=== PATIENT | female | born 1955 | race Caucasian/White ===

== ENCOUNTER 2024-01-25 08:30 | Outpatient (RCR) | payer MEDICARE, SELFPAY ==
--- NOTE | 2023-12-24 16:38 | PTOPEVAL1 ---
Assessment and note entered by Allyssa Chu, PT Evaluation Information Assessment Status Evaluation Diagnosis m54.2 cervicalgia, M25.511 pain in R shoulder, G89 .11 ICD-10 Condition Codes (PT) Cervicalgia M54.2,M25.511,M25.521,Weakness R53.1 Onset Dec 08, 2023 Subjective Information Pt reports falling last Dec 07 outdoor while she was working in the yard and fell backwards and hit her head, recalls throwing her R arm up and back. However, during the day of the fall, she was focusing on the pain in her head due hematoma, did not notice anything else. The next day she felt severe ache and soreness to B shoulders R > L which got worse over time. MD gave her muscle relaxants and it seem to help some. 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 Other activities that are severely limited at this time include: Curling her hair, moving her arm out to hand something, putting away dishes or reaching overhead cupboards . She uses L hand to support R elbow when performing all ADLs and IADLs. Assessment PT Clinical Summary Pt is a 68 yo female who presents to therapy with c/o increased R UE pain secondary to a mechanical fall on 12/08/2023. Shoulder X-ray showed Degenerative changes of the area of the greater tuberosity, negative for dislocation or fracture. Cervical X-ray result indicated Multilevel degenerative disc disease with narrowing of discs and foramina bilat. Pt demos loss of R shoulder active ROM, significant muscle guarding and tightness resulting to weakness, decreased arm swing with gait and increased difficulty with performing ADLs and IADLs requiring occasional assistance from her . She will greatly benefit from skilled PT to manage pain, improve joint mobility and integrity, improve strength in order to perform pain-free and independent functional mobility. Plan of Care Interventions Electrical Stimulation,Hot Pack/Cold Pack,Manual Therapy,Neuro Re-education,Patient/Caregiver Education,Therapeutic Activities,Therapeutic Exercise,Ultrasound Other Interventions [facility] Indicated Yes Treatment Frequency and 2x/wk x 20 visits Duration These treatments will address the objective and functional deficits as defined above. The patient will be advanced safely and appropriately in order for the patient to progress towards his/her prior level of function. Additional exercises will be introduced and as well as a comprehensive home exercise program upon discharge, if needed, ?to ensure carryover of functional gains achieved in the clinic. This treatment plan has been reviewed and agreement upon by the patient.
--- NOTE | 2024-01-25 09:57 | PTOPDC ---
Assessment and note entered by Allyssa Chu, PT Discharge Information Assessment Status Discharge Diagnosis m54.2 cervicalgia, M25.511 pain in R shoulder, G89 .11 ICD-10 Condition Codes (PT) Cervicalgia M54.2,M25.511,M25.521,Weakness R53.1 Onset Dec 08, 2023 Subjective Information Pt reports being able to do active R shoulder movements without assistance from the L UE. Pain is significantly reduced. Reported Pain Level Pain Score 1: Self Report Assessment PT Clinical Summary Pt received a total of 6 PT sessions and showed good progress with therapy, showed gains in mobility, strength and significant reduction in pain. Functional tests demos WNL ROM for R shoulder, 5/5 strength and 3/10 pain at worst. She scored 11% for Quick DASH questionnaire indicating minimal disability. Continued skilled PT not necessary at this time. Plan of Care PT Services Indicated No
== END 2024-01-25 13:45 | disposition home or self-care (01) ==
LOC: ANHHIPT 08:30
PROVIDERS: PCP Physician Assistant Medical; Visit Provider Physician Assistant Medical
DX: M54.2 Cervicalgia (principal); M25.511 Pain in right shoulder; G89.11 Acute pain due to trauma
CPT/HCPCS: 97014; 97035; 97110; 97140; 97161; 97750; G0283

== ENCOUNTER 2024-06-29 09:28 | Outpatient (CLI) | payer MEDICARE, SELFPAY ==
--- NOTE | ~2024-06-29 | MR_ITS ---
MRI of the right shoulder Technique: Axial proton-density fat-sat images, coronal proton density fat-sat and T2 fat-sat images, and sagittal T1-weighted and T2 fat-sat images were acquired. Clinical History: Pain Findings: There is severe AC joint degenerative change, with bony productive change and fluid present in the joint space. Subacromial spur present. Coracoclavicular, coracoacromial, and coracohumeral li gaments are probably intact. There is advanced supraspinatus and infraspinatus tendinosis. Questionable high-grade tearing at the distal anterior supraspinatus tendon insertion versus severe tendinosis and thinning. No infraspinatu s tear evident. Subscapularis tendon is intact. Tendon of long head of the biceps is intact. There is mild degenerative attenuation of the superior labrum. Inferior glenohumeral ligament is intact. There is no degenerative change of the glenohumeral joint i s mild chondromalacia. There is small amount of fluid in the subacromial/subdeltoid bursa. No muscle atrophy or edema. Impression: Severe rotator cuff tendinosis of the supraspinatus and infraspinatus tendons. Questionable high grad e/full thickness tearing at the distal anterior supraspinatus tendon versus tendon thinning and sever e tendinosis. Consider MR arthrogram to better confirm or exclude full-thickness tear. Severe AC joint degenerative change. Mild subacromial/subdeltoid bursitis suspected. Reviewed, dictated and finalized at location . Impression: Severe rotator cuff tendinosis of the supraspinatus and infraspinatus tendons. Questionable high grade/full thickness tearing at the distal anterior supraspin atus tendon versus tendon thinning and severe tendinosis. Consider MR arthrogra m to better confirm or exclude full-thickness tear. Severe AC joint degenerative change. Mild subacromial/subdeltoid bursitis suspected.
== END 2024-06-29 09:29 | disposition home or self-care (01) ==
LOC: MICIMG 09:29
PROVIDERS: PCP Physician Assistant Medical; Visit Provider Physician Assistant Medical
DX: M19.011 Primary osteoarthritis, right shoulder (principal)
CPT/HCPCS: 73221

== ENCOUNTER 2025-01-24 11:13 | Outpatient (CLI) | payer MEDICARE, SELFPAY ==
--- NOTE | 2025-01-24 11:32 | ECG_ITS ---
Test Date: 2025-01-24 12:00:30 Measurements Intervals [place] Rate: 63 P: -4 MS: 177 QRS: -37 QRSD: 97 T: -1 QT: 411 QTc: 424 Interpretive Statements SINUS RHYTHM LEFT AXIS DEVIATION LOW QRS VOLTAGE IN PRECORDIAL LEADS INCOMPLETE RIGHT BUNDLE BRANCH BLOCK POSSIBLE ANTERIOR MYOCARDIAL INFARCTION CONSIDER INFERIOR INFARCT, AGE INDETERMINATE BASELINE ARTIFACT- I, II, III, AVR, AVL, AVF ABNORMAL ECG No previous ECG available for comparison Electronically Signed On 01-24-2025 12:17:19 CDT by Cody Palomo D.O.
== END 2025-01-24 11:14 | disposition home or self-care (01) ==
LOC: ANHSURGERY 11:17
PROVIDERS: PCP Physician Assistant Medical; Visit Provider Orthopaedic Surgery
DX: M75.111 Incomplete rotator cuff tear or rupture of right shoulder, not specified as traumatic (principal); I10 Essential (primary) hypertension; Z01.818 Encounter for other preprocedural examination
CPT/HCPCS: 87081; 93005

== ENCOUNTER 2025-02-20 12:09 | Outpatient (CLI) | payer MEDICARE, SELFPAY ==
[2025-02-20 12:57] LABS: Anion Gap 6 mmol/L (4-12); Blood Urea Nitrogen 14 mg/dL (7-17); Calcium 9.1 mg/dL (8.4-10.2); Carbon Dioxide 32 mmol/L (22-30); Chloride 96 mmol/L (98-107); Estimated Glomerular Filt Rate > 60; Glucose 115 mg/dL (65-110); Potassium 3.7 mmol/L (3.4-5.0); Sodium 134 mmol/L (137-145)
== END 2025-02-20 12:10 | disposition home or self-care (01) ==
LOC: ANHSURGERY 12:11
PROVIDERS: Anesthesiology; PCP Physician Assistant Medical; Visit Provider Orthopaedic Surgery
DX: I10 Essential (primary) hypertension (principal); Z01.818 Encounter for other preprocedural examination
CPT/HCPCS: 36415; 80048

== ENCOUNTER 2025-03-02 01:44 | Day surgery (SDC) | payer MEDICARE, SELFPAY ==
--- NOTE | 2025-01-19 14:32 | PC.NURSE ---
[facility] has started construction of its new state of the art ER which will open Spring 2026. With this, we anticipate parking may be a challenge for some our surgical patients and families. Parking spaces are limited but are available for all Surgical, obstetrics, and ER patients sharing this lot. If you arrive and find you are having a hard time finding a parking space, please note that we understand the challenges, please drive around the hospital and park near Hospital Entrance 1. When you enter this entrance, you can ask a volunteer to direct or take you back to the surgical waiting area to check in. We appreciate everyone?s understanding of these expected challenges while we build for your future. Report to the Outpatient Waiting Room, entrance under the green pavilion located off [address], at time __6 AM on date __02/02/25 . Planned Procedure Time: ___7:30 AM .? Time changes happen often and if your time is changed the preop area will call you the afternoon before. - You and your visitor will be asked to self-screen and do not enter if you have any COVID symptoms. Please call surgeon if you need to reschedule. - A mask is optional within the hospital at this time. Patients may have clear liquids (water, carbonated beverages, clear teas, apple juice) until 3 hours prior to surgery( 4:30 AM) with a maximum of 20 ounces. - No food from midnight until time of surgery and no smoking, or chewing tobacco (or any form of nicotine). No chewing gum, candy or mints. - Take only the following medications with a SIP of water on the morning of surgery: _CITALOPRAM,LEVOTHYROXINE DO NOT STOP ANY OF YOUR OTHER PRESCRIPTION MEDICATIONS PRIOR TO SURGERY EXCEPT THE FOLLOWING Hold all vitamins and supplements for 3 days per anesthesiologist. MAY CONTINUE ASPIRIN PER DR ROWELL BUT DO NOT TAKE MORNING OF SURGERY Medications to discontinue per physician ___NONE Please no make-up, nail lithuanian, hairspray, perfume, deodorant, or body powder the day of surgery.? No jewelry (including any body piercings) or valuables the day of surgery, leave them at home.? Please take a shower or bath the night before, or the morning of, surgery with an antibacterial soap.? Wear comfortable, loose fitting clothing.? Children are encouraged to wear pajamas. - Jewelry must be removed prior to entering the operating room.? Rings and piercings that are not removed may be cut off. - The hospital will not accept responsibility for valuables.? - Please leave all valuables, including medications, at home the day of surgery. If you are going home after surgery, a licensed sales route driver helper must drive you home.? - NO public transportation without another adult if you receive anesthesia. - We recommend that an adult stay with you for 24 hours following discharge. - We also recommend that you do not drive, make important decision, drink alcoholic beverages, or take any drugs that were not prescribed by your health care provider for at least 24 hours after your discharge time. For Pediatric surgeries, we recommend two adults accompany the child home. Follow any additional instructions given to you from your surgeon. Telephone instructions given to _PATIENT and asked if any additional questions and then verbalized understanding. Patient advised to call surgeon office or pre surgery nurse liaison [phone] if any additional questions.
[2025-01-19 14:51] VITALS: BMI 38.3
--- NOTE | 2025-02-16 09:30 | PC.NURSE ---
[facility] has started construction of its new state of the art ER which will open Spring 2026. With this, we anticipate parking may be a challenge for some our surgical patients and families. Parking spaces are limited but are available for all Surgical, obstetrics, and ER patients sharing this lot. If you arrive and find you are having a hard time finding a parking space, please note that we understand the challenges, please drive around the hospital and park near Hospital Entrance 1. When you enter this entrance, you can ask a volunteer to direct or take you back to the surgical waiting area to check in. We appreciate everyone?s understanding of these expected challenges while we build for your future. Report to the Outpatient Waiting Room, entrance under the green pavilion located off [address], at time __9:30 am on date _03/02/25 . Planned Procedure Time: _11:30 am .? Time changes happen often and if your time is changed the preop area will call you the afternoon before. - You and your visitor will be asked to self-screen and do not enter if you have any COVID symptoms. Please call surgeon if you need to reschedule. - A mask is optional within the hospital at this time. Patients may have clear liquids (water, carbonated beverages, clear teas, apple juice) until 3 hours prior to surgery ( 8:30 am) with a maximum of 20 ounces. - No food from midnight until time of surgery and no smoking, or chewing tobacco (or any form of nicotine). No chewing gum, candy or mints. - Take only the following medications with a SIP of water on the morning of surgery: ___CITALOPRAM,LEVOTHYROXINE DO NOT STOP ANY OF YOUR OTHER PRESCRIPTION MEDICATIONS PRIOR TO SURGERY EXCEPT THE FOLLOWING Hold all vitamins and supplements for 3 days per anesthesiologist.LAST DOSE02/26/25 Medications to discontinue per physician PATIENT STATES MAY CONTINUE ASPIRIN PER DR ROWELL BUT DO NOT TAKE MORNING OF SURGERY Please no make-up, nail telugu, hairspray, perfume, deodorant, or body powder the day of surgery.? No jewelry (including any body piercings) or valuables the day of surgery, leave them at home.? Please take a shower or bath the night before, or the morning of, surgery with an antibacterial soap.? Wear comfortable, loose fitting clothing.? Children are encouraged to wear pajamas. - Jewelry must be removed prior to entering the operating room.? Rings and piercings that are not removed may be cut off. - The hospital will not accept responsibility for valuables.? - Please leave all valuables, including medications, at home the day of surgery. If you are going home after surgery, a licensed rear load truck driver must drive you home.? - NO public transportation without another adult if you receive anesthesia. - We recommend that an adult stay with you for 24 hours following discharge. - We also recommend that you do not drive, make important decision, drink alcoholic beverages, or take any drugs that were not prescribed by your health care provider for at least 24 hours after your discharge time. For Pediatric surgeries, we recommend two adults accompany the child home. Follow any additional instructions given to you from your surgeon. Telephone instructions given to ____PATIENT and asked if any additional questions and then verbalized understanding. Patient advised to call surgeon office or pre surgery nurse liaison [phone] if any additional questions.
--- NOTE | 2025-02-16 09:39 | PC.NURSE ---
PATIENT STATES NO CHANGE IN HEALTH HX SINCE LAST INTERVIEW ON 01/19/25. STATES HAD NUCLEAR STRESS TEST 02/13/25 AND IS NOW CLEARED FOR SURGERY
--- NOTE | 2025-03-01 13:06 | PM.IMHP2 ---
H&P: HPI History of Present Illness Date/Time: 03/01/25 13:06 <Santosh Miller PA-C - Last Filed: 03/01/25 16:13> Chief Complaint: High-grade partial-thickness tear right rotator cuff tendon with posttraumatic osteoarthritis of the AC joint <Santosh Miller PA-C - Last Filed: 03/01/25 16:13> Narrative: 69-year-old female who presents today for arthroscopy right shoulder mini open rotator cuff repair with distal clavicle excision possible biceps tenodesis proceed as indicated Patient has been having pain in the right shoulder for over a year. She fell in November 2023 onto the right shoulder. She did sustain impacted distal clavicle fracture that was treated nonsurgically. Patient continued to have pain in the shoulder and did have an MRI scan done in June of this year which showed high-grade partial-thickness tearing of the supraspinatus tendon as well as severe tendinopathy of the supraspinatus and infraspinatus tendon. It also showed the deformity of the distal clavicle with significant narrowing of the AC joint. Patient has been trying to live with <Santosh Miller PA-C - Last Filed: 03/01/25 16:13> 69-year-old female who presents today for arthroscopy right shoulder mini open rotator cuff repair with distal clavicle excision possible biceps tenodesis proceed as indicated Patient has been having pain in the right shoulder for over a year. She fell in November 2023 onto the right shoulder. She did sustain impacted distal clavicle fracture that was treated nonsurgically. Patient continued to have pain in the shoulder and did have an MRI scan done in June of this year which showed high-grade partial-thickness tearing of the supraspinatus tendon as well as severe tendinopathy of the supraspinatus and infraspinatus tendon. It also showed the deformity of the distal clavicle with significant narrowing of the AC joint. Patient has been trying to live with Physical examination On exam today she is a pleasant female in no acute distress. She is alert and oriented. Her BMI is 36.1. The she has active assisted elevation 170 internal rotation T12 external rotation 60?. She is able to do a subscap lift-off barely. She has normal belly press strength. There is moderate weakness in abduction with giving way due to pain she has mild weakness in external rotation. Severe tenderness over the AC joint moderately severe tenderness over the supraspinatus tendon insertion and moderate tenderness over the bicipital groove. Speed's maneuver was negative. X-rays X-rays today right shoulder show small lucencies at the humeral head consistent with cystic changes. Deformity of the distal clavicle is noted. Normal glenohumeral joint space is noted and no superior migration. Assessment and plan Patient has high-grade partial-thickness tear supraspinatus tendon right shoulder with severe tendinopathy. She has had progressive increase in the degree of weakness in the shoulder over the last few months. She has decided that her symptoms are not tolerable with non operative treatment she would prefer to proceed with surgical repair the hopes of improving her function and pain. I have discussed with her previously we reviewed again today what is involved with rotator cuff repair. I explained my preference for using arthroscopy for portions of the procedure and a mini open approach for suturing the tendon to bone. I discussed with her that I would anticipate using a acellular dermal allograft to augment the repair as her tissue seems very thin and tendinopathic in the region of the high-grade partial-thickness tear. I explained that this tissue comes from cadaver skin. Frequently and minimal acromioplasty is performed. She continues to have severe tenderness at the AC joint and given her posttraumatic deformity there I if feel that a distal clavicle excision will be necessary has there would be too great a risk that she would continue to have acromioclavicular joint symptoms after rotator cuff repair unless the joint is decompressed. Her prior distal clavicle fracture resulted in marked impaction of the anterior aspect of the distal clavicle such that there is a prominent gap between the anterior 1/2 the distal clavicle and the acromion and there is direct impingement but the posterior 3rd of the distal clavicle on the mid medial acromion and just posterior to the clavicular facet of the acromion. She does have a type 3 acromion so a limited acromioplasty would be performed also. I have discussed with her that labral tearing will be debrided as indicated and if she does have significant damage to the intra-articular portion along the biceps a bicipital tenodesis would be performed into the bicipital groove. The long head of the biceps within the groove looks normal on the previous MRI scan. I discussed risks of surgery with her in detail. I explained there are risks of the anesthesia such as DVT and other anesthesia related complications and there are risks with the surgery such as infection, stiffness, and recurrent tear. She does have some atrophy so she may not regain optimal strength and the primary goal is to improve her pain a day-to-day basis that she experiences. I explained that she will be in a shoulder immobilizer for least 6 weeks after surgery and have physical therapy. I explained it will be 6 months before we let her do any heavy lifting with the right upper extremity. She is at a little bit higher risk for infection due to her diabetes will mitigate this with oral antibiotic prophylaxis after surgery. She will stop her ibuprofen 1 week before surgery. She does take a baby aspirin daily and she does this due to the fact that she has been found to have small chronic infarcts within the anterior limb left internal capsule and inferior left frontal white matter noted on CT from 12/08/2023 which was obtained when she fell and hit her head. There was no acute intracranial hemorrhage or skull fracture at that time. I have discussed with her that she would be at some increased risk for stroke with surgery and for this reason we would have her continue the baby aspirin and not stop it even though she may have a little bit more bruising and bleeding in the shoulder after surgery. <Lan Vazquez MD - Last Filed: 03/01/25 16:01> [facility] Past Medical History Medical History: Medical History (Updated 01/20/25 @ 21:43 by Bev Laureano PA-C) Cellulitis of right foot Pain of neck with recent traumatic injury Laceration of left hand Fall Contusion of right foot Right shoulder pain Stomach ulcer Elevated cholesterol with elevated triglycerides History of CVA (cerebrovascular accident) incidental finding on CT 12/08/2023, affecting left frontal and internal capsule Anemia Arthritis Anxiety Asthma Hyperlipidemia Hypertension <Santosh Miller PA-C - Last Filed: 03/01/25 16:13> Surgical History Surgical History: Surgical History History of knee replacement History of total abdominal hysterectomy <Santosh Miller PA-C - Last Filed: 03/01/25 16:13> Family History Family History: Family History Other Asthma Family history of arthritis <Santosh Miller PA-C - Last Filed: 03/01/25 16:13> Social History Social History: Social History (Updated 01/25/25 @ 08:06 by Rickey Chen) Social History: 01/24/25 patient declined SDOH Smoking status: Never smoker Alcohol intake: never Substance use: never Current Housing: Decline to Answer Concerned About Future Housing: Decline to Answer Difficulty Paying Gas/Electric Bills: Decline to Answer Difficulty Paying for Meds: Decline to Answer Currently Unemployed: Decline to Answer Education: Decline to Answer Difficulty w/ Childcare or Family Care: Decline to Answer Living arrangements: with family Occupation/Education: retired Gender identity (if verbalized by the patient): Female Spiritual care concerns: No <Santosh Miller PA-C - Last Filed: 03/01/25 16:13> Meds Home Medications and Allergies Home medications: Home Medications ?Medication ?Instructions ?Recorded ?Confirmed ?Type aspirin 81 mg tablet,delayed 81 mg PO DAILY 12/17/21 01/19/25 History release (Adult Aspirin Regimen) lisinopril 20 0.5 tablet PO DAILY #45 tabs 12/08/24 01/19/25 Rx mg-hydrochlorothiazide 25 mg tablet metformin 500 mg tablet,extended 500 mg PO DAILY #90 tabs 12/26/24 01/19/25 Rx release 24 hr (Glucophage XR) citalopram 20 mg tablet 20 mg PO DAILY #90 tabs 02/01/25 02/16/25 Rx levothyroxine 100 mcg tablet 100 mcg PO DAILY #90 tabs 02/01/25 02/16/25 Rx simvastatin 40 mg tablet 40 mg PO QHS #90 tabs 02/01/25 02/16/25 Rx cholecalciferol (vitamin D3) 50 2,000 unit PO DAILY 02/16/25 02/16/25 History mcg (2,000 unit) tablet doxycycline hyclate 100 mg tablet 100 mg PO DAILY acne #30 tabs 03/01/25 Rx <Santosh Miller PA-C - Last Filed: 03/01/25 16:13> Allergies/Adverse reactions: Allergies Allergy/AdvReac Type Severity Reaction Status Date / Time tetracycline Allergy Unknown Rash Verified 02/16/25 09:25 sulfamethoxazole (From AdvReac Hives Verified 02/16/25 09:25 Bactrim) trimethoprim (From Bactrim) AdvReac Hives Verified 02/16/25 09:25 Bctrim DS Allergy Severe HIVES Uncoded 01/19/25 08:22 <Santosh Miller PA-C - Last Filed: 03/01/25 16:13>
[2025-03-02] VITALS (9 sets, daily range): BP systolic 141–152; BP diastolic 69–89; PULSE 72–85; RESP 16–20; TEMP 36.2–36.7; O2SAT 92–100
--- NOTE | ~2025-03-02 | XR_ITS ---
EXAMINATION: XR shoulder RT min 2V, 03/02/2025 15:12 [facility] HISTORY: S/P acromioplasty and dist clavicle excisision COMPARISON: No comparisons available. Findings: Postsurgical changes are noted, no acute fracture or subluxation. No significant degenerative changes. Soft tissues unremarkable. Impression: No acute fracture or malalignment. Reviewed, dictated and finalized at location [facility] Impression: No acute fracture or malalignment.
[2025-03-02] MEDS: VANCOMYCIN 1,500 MG/NS 500 ML BAG 250 MG IVPB (09:55)
[2025-03-02] MEDS: LACTATED RINGERS 1,000 ML 30 ML IV CONT ×2 (09:55→14:51)
[2025-03-02] MEDS: ACETAMINOPHEN 500 MG TABLET 1000 MG PO (09:55)
[2025-03-02] MEDS: KETOROLAC 15 MG/ML VIAL (*BKC) IV PUSH (09:55)
--- NOTE | 2025-03-02 11:17 | WPDHPUPDATE1 ---
History and Physical Update Update Date/Time: 03/02/25 11:17 History and Physical has been reviewed, including an updated exam of the patient. There are NO changes in the patient's condition. Risks, benefits, and alternatives have been discussed and questions answered. Patient agrees to proceed with procedure.
--- NOTE | 2025-03-02 11:50 | WPDANESEPPF ---
Anes - Initial Pre Proc Eval Procedure: Operation Date: 03/02/25 11:30 Proposed Procedures p Right Shoulder Arthroscopy, Open Rotator Cuff Repair, Distal Clavicle Excision, Possible Biceps Tenodesis, Proceed as Indicated - Lan Vazquez MD Date/Time: 03/02/25 11:50 Surgeon: Lan Vazquez MD Pre Op Diagnosis: partial thickness tear rot cuff, ac joint arthr. Patient Data Age: 69 Gender: F Height: 1.55 m Weight: 92.7 kg Last Vital Signs Temp 98.1 F 03/02/25 09:55 Pulse 75 03/02/25 09:55 Resp 16 03/02/25 09:55 BP 152/89 H 03/02/25 09:55 Pulse Ox 98 03/02/25 09:55 O2 Del Method Room Air 03/02/25 09:55 Allergies Allergy/AdvReac Type Severity Reaction Status Date / Time tetracycline Allergy Unknown Rash Verified 03/02/25 10:06 sulfamethoxazole (From AdvReac Hives Verified 03/02/25 10:06 Bactrim) trimethoprim (From Bactrim) AdvReac Hives Verified 03/02/25 10:06 Bctrim DS Allergy Severe HIVES Uncoded 01/19/25 08:22 Home Medications ?Medication ?Instructions ?Recorded ?Confirmed ?Type aspirin 81 mg tablet,delayed 81 mg PO DAILY 12/17/21 01/19/25 History release (Adult Aspirin Regimen) lisinopril 20 0.5 tablet PO DAILY #45 tabs 12/08/24 01/19/25 Rx mg-hydrochlorothiazide 25 mg tablet metformin 500 mg tablet,extended 500 mg PO DAILY #90 tabs 12/26/24 01/19/25 Rx release 24 hr (Glucophage XR) citalopram 20 mg tablet 20 mg PO DAILY #90 tabs 02/01/25 03/02/25 Rx levothyroxine 100 mcg tablet 100 mcg PO DAILY #90 tabs 02/01/25 03/02/25 Rx simvastatin 40 mg tablet 40 mg PO QHS #90 tabs 02/01/25 02/16/25 Rx cholecalciferol (vitamin D3) 50 2,000 unit PO DAILY 02/16/25 03/02/25 History mcg (2,000 unit) tablet doxycycline hyclate 100 mg tablet 100 mg PO DAILY acne #30 tabs 03/01/25 Rx Laboratory Tests 03/02/25 09:51 POC Capillary Glucose 161 H mg/dl (65-105) Patient hx anesthesia problems: none Family hx anesthesia problems: none Results Review: All pre-operative results and documents have been reviewed as part of the pre-operative evaluation. [facility] Past Medical History Medical History Cellulitis of right foot Pain of neck with recent traumatic injury Laceration of left hand Fall Contusion of right foot Right shoulder pain Stomach ulcer Elevated cholesterol with elevated triglycerides History of CVA (cerebrovascular accident) incidental finding on CT 12/08/2023, affecting left frontal and internal capsule Anemia Arthritis Anxiety Asthma Hyperlipidemia Hypertension Surgical History Surgical History History of knee replacement History of total abdominal hysterectomy Family History Family History Other Asthma Family history of arthritis Social History Social History Social History: 01/24/25 patient declined SDOH Smoking status: Never smoker Alcohol intake: never Substance use: never Current Housing: Decline to Answer Concerned About Future Housing: Decline to Answer Difficulty Paying Gas/Electric Bills: Decline to Answer Difficulty Paying for Meds: Decline to Answer Currently Unemployed: Decline to Answer Education: Decline to Answer Difficulty w/ Childcare or Family Care: Decline to Answer Living arrangements: with family Occupation/Education: retired Gender identity (if verbalized by the patient): Female Spiritual care concerns: No Anes - Eval Final PreProcedure Day of Procedure 03/02/25 11:50 Patient weight: obese Lungs: normal air movement Airway: Mallampati scale class II and special considerations (R upper incisor w large chip noted. Missing some teeth on lower L aspect. ) Neurological: alert and oriented Last oral intake: >/= 8 hours ASA classification: III Emergent: no Anesthetic plan: proceed Anesthesia type and monitoring: general ETT and standard monitoring Results Review: All pre-operative results and documents have been reviewed as part of the pre-operative evaluation. HTN, hyperlipidemia, hypothyroidism, DM fsbs 161. Pt had stress test 01/2025 w no reversible ischemia, nml LVEF. Full discussion of R/B/A of ISB and GA w pt and and son to the best of my ability. They agree to proceed. Informed Consent: The patient's anesthetic plan and its attendant risks and benefits were discussed with the patient/family/POA. Questions were solicited and answers provided to the satisfaction of the patient/family/POA.
--- NOTE | 2025-03-02 12:12 | WPDANESPNB ---
Anes - Peripheral Nerve Block Date/Time: 03/02/25 12:12 I have discussed with the patient/family/POA the placement of a peripheral nerve block for post-operative pain management, including associated risks, benefits, complications, and side effects. Alternative methods of post-operative analgesia were detailed. Questions were solicited and answers provided to the satisfaction of the patient/family/POA. Time-Out: A pre-procedural Time-Out was completed immediately before starting the procedure and confirmed: Patient Identification, Site, Procedure, Patient Position and the Availability of Requisite Equipment. Clinical Indications: Acute post-operative pain management requested by the operative surgeon. Nerve Block Insertion Note Anes-nerve block: interscalene right Patient position: supine Skin prep: chlorhexidine Needle: 22 gauge, stimulating, insulated echogenic needle. Needle length: 80 mm Technique: ultrasound Injectate: other (Bupiv 0.5% 15 mls. ) Observations: tolerated well Complications: none Procedure start time:: 1200 Procedure end time:: 1210
[2025-03-02] MEDS: ceFAZolin 2 GM in SODIUM CHLORIDE 0.9% IV 50 ML 100 ML IVPB (12:40)
--- NOTE | 2025-03-02 15:02 | W.PM.PROC2 ---
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 She was placed in the beach chair position the right shoulder prepped draped usual fashion. Range of motion the shoulder was normal passively under anesthesia. She received 2 g of Ancef and weight based vancomycin preoperatively. All the skin was covered with IO band except the top part of the shoulder. Standard posterior portal was placed. Anterior superior portal placed. There was intermediate grade chondromalacia over the medial aspect of the humeral head. Minimal chondromalacia of the glenoid. Extensive maceration of the superior glenoid labrum was seen and labral debridement carried out with motorized shaver. The biceps anchor was intact. The long head of the biceps itself looked normal. It was retracted in the joint and we could see that the portion in the bicipital groove was also normal. Subscapularis tendon looked normal. There is at least high-grade articular sided partial-thickness tearing of the supraspinatus and anterior superior aspects of the infraspinatus tendon noted. The The remaining skin was covered without bandage other cleft change. Off a 2.5 in incision was made from the dorsal aspect of the distal clavicle extending off the anterolateral corner of the acromion. The capsule over the mid part of the distal clavicle was incised and the deltoid origin incised on the top of the acromion 5 mm back from the anterior edge of the acromion incision carried down through the tendinous Ben a of the deltoid between the anterior middle heads. A split for 3 cm was made. The CA ligament was elevated off the anterior inferior acromion with an elevator. The distal clavicle was exposed. She had a malunion of the distal clavicle where the anterior portion of the articular surface was impacted the but the posterior aspect of the articular surface of the distal clavicle was not impacted and this was impinging on the posterior aspect of the clavicular facet of the acromion associated with severe chronic tenderness. A small oscillating saw was used to perform a distal clavicle resection. The plane of resection matched the orientation of the clavicular facet the acromion and has resulted removed about 8mm posteriorly and about 2 mm anteriorly her. With this done we could not get the clavicle to contact the acromion with abduction maneuvers. We did leave the posterior capsule of the AC joint intact in the distal clavicle was stable. A rasp was used to smooth the edges of the distal clavicle. The next day the acromioplasty was performed with the oscillating saw removing about 4 mm of bone from the anteroinferior acromion to create a flat acromial surface. Distal flattening performed with a rasp and osteophyte from the inferior aspect of the clavicular facet of the acromion removed with the rongeur and rasped smooth. This gave adequate decompression. The rotator cuff was inspected. In the center of the supraspinatus tendon insertion there was a pinhole noted with the probe the and this is where the residual attachment was 10 to about 2 mm. The the the residual thin membrane of attached supraspinatus tendon was elevated off the lateral aspect of the greater tuberosity. This was greater than 90% partial-thickness tearing articular side. The the we continued to release the 2 mm thick area tendon anteriorly and posteriorly. The the anterior cable was thinned and the anterior cable was otherwise left intact. Posteriorly this extended into the anterior portion of the infraspinatus. I found that releasing about 12 mm of width of the supraspinatus and just a little bit of the infraspinatus allowed us to get adequate access to the middle facet of the greater tuberosity under the intermediate grade partial-thickness articular sided tearing of the posterior 2/3 of the infraspinatus. With a 15 blade scalpel we carefully scraped residual soft tissue off the greater tuberosity with a 2 mm bur we made bur holes adjacent the articular surface for passage of sutures and numerous light dimples the more sclerotic areas of the greater tuberosity creating a clean bleeding bony surface. We obtained full-thickness bites of the supraspinatus and upper infraspinatus with 1.2 mm Mary Jane suture tapes and placed these in a simple converting fashion 10th grade a spherical contour to the repair and the tendon mobilized easily. Additional 2. Ethibonds were placed 1 anteriorly and 1 posteriorly also converging 2 finish the repair. This gave a smooth contour spherical shape to the repaired rotator cuff and there was no undue tension on the repair with range of motion. Arthroscope was placed in the shoulder we saw that the capsule was tightly approximated to the medial aspect of the. Tuberosity footprint. The long of the biceps was still mobile. I felt the supraspinatus tendon tissue was diffusely thin and although it seemed to hold sutures satisfactorily we could see that there was significant tendinopathy on MRI scan involving the supraspinatus tendon therefore I felt that to reduce the risk of recurrent tear, augmentation with acellular dermal allograft matrix was indicated and we proceeded with a 2 cm x 2.5 cm graft that was approximately 1.25 mm thick and this was applied in a more longitudinal direction and using approximately 20 simple 0 Ethibond sutures placed with the small tapered needle the graft was applied stretched medial to lateral and anterior to posterior the and the graft was brought down onto the lateral aspect of the greater tuberosity which covered the suture knots. We had adequate fixation of the graft distally in the periosteum as well. The this patch cover the entire repair. The shoulder was taken again through full range of motion there was no undue tension on the repair. The wound was again irrigated with Ancef solution as it had been previously on multiple occasions. The adequacy of the acromioplasty was confirmed. Next we placed 2 2. Ethibond sutures through the anterior acromion these were passed through the anterior deltoid and a secure attachment was achieved in the split closed with 2. Vicryl suture and the capsule was reapproximated over the distal clavicular defect with multiple 2. Vicryl. The skin was closed with 2 subcutaneous Vicryl and glue. EBL was about 50 cc. There were no complications she was transferred postop recovery room in stable condition.
--- NOTE | 2025-03-02 15:03 | PM.OP ---
Procedure Note - Brief Procedure Note - Brief Date of procedure: 03/02/25 partial thickness tear rot cuff, ac joint arthr. Procedure performed: Arthroscopy right shoulder with open distal clavicle excision and acromioplasty. Also open rotator cuff repair Surgeon: Santosh Miller PA-C Findings: 69-year-old female underwent above said procedure right shoulder on 03/02. I was involved in the procedure including positioning the patient on the OR table in 1st assisting through the time surgery. Total time spent was 3 hours
[2025-03-02] MEDS: ONDANSETRON INJ 4 MG/2 ML VIAL IV PUSH (16:15)
== END 2025-03-02 17:15 | disposition home or self-care (01) ==
PROVIDERS: PCP Physician Assistant Medical; Visit Provider Orthopaedic Surgery
PROC: (CPT 29805; principal; 2025-03-02 11:30)
DX: S46.011A Strain of muscle(s) and tendon(s) of the rotator cuff of right shoulder, initial encounter (principal); G89.18 Other acute postprocedural pain; M19.111 Post-traumatic osteoarthritis, right shoulder; M94.211 Chondromalacia, right shoulder; W19.XXXA Unspecified fall, initial encounter; Z79.84 Long term (current) use of oral hypoglycemic drugs; E66.9 Obesity, unspecified; Z68.38 Body mass index [BMI] 38.0-38.9, adult
CPT/HCPCS: 23410; 23120; 64415; 73030; 82948; J0690; A4565; A9270; J1100; J1885; J2003; J2250; J2405; J2704; J3010; J3373; J7120; Q4125